=== PATIENT | male | born 1990 | race Caucasian/White ===

== ENCOUNTER 2018-12-04 12:28 | Emergency (ER) | payer OTHER ==
[2018-12-04 12:45] VITALS: TEMP 98.1
[2018-12-04 15:53] VITALS: BP 124/86; O2SAT 98
== END 2018-12-04 13:55 ==
LOC: ER 12:28
DX: T18.2XXA Foreign body in stomach, initial encounter (principal); J45.909 Unspecified asthma, uncomplicated; Z87.891 Personal history of nicotine dependence